=== PATIENT | male | born 1950 | race Caucasian/White ===

== ENCOUNTER → 2017-12-14 | Outpatient (CLI) | payer MEDICARE, MEDICAID ==
[~2017-12-14] MED LIST: FUROSEMIDE 20 MG/2 ML VIAL (J1940) As Ordered
== END ==
LOC: M RAD 10:43
DX: N28.1 Cyst of kidney, acquired (principal); D41.02 Neoplasm of uncertain behavior of left kidney
CPT/HCPCS: J1940

== ENCOUNTER → 2019-01-02 | Outpatient (CLI) | payer MEDICARE, MEDICAID ==
[~2019-01-02] MED LIST changes: +AMLO10TA2 PO; +CYCL10TA3 PO; -FUROSEMIDE 20 MG/2 ML VIAL (J1940) As Ordered; +MELO15TA3 PO; +OXYC1TAB23 PO
--- NOTE | 2019-01-02 10:22 | REP ---
Low-dose lung screening CT of the chest: The study is performed without IV contrast. The images are presented at lung windowing only. There are no comparisons. There is a 20 mm ground-glass density anteromedially in the left upper lobe. This is a category 3 lung lesion. Probability of malignancy is 1 - 2%. There are no other lung nodules or masses. There are no infiltrates or pleural effusions. There are occasional bulla. Impression: Category 3 left upper lobe ground-glass density. The probability of malignancy is 1 - 2%. 6-month follow-up low-dose lung screening CT is recommended. Electronically Signed by Ap Almazan MD 01/02/2019 10:13 A
== END ==
LOC: M RAD 09:21
PROVIDERS: ATTEND Family Medicine
DX: R91.8 Other nonspecific abnormal finding of lung field (principal); F17.210 Nicotine dependence, cigarettes, uncomplicated

== ENCOUNTER → 2021-01-05 | Outpatient (CLI) | payer MEDICARE ==
--- NOTE | 2021-01-05 10:51 | REP ---
INDICATION: SOLITARY PULMONARY NODULE. COMPARISON: 06/26/2020, 01/02/2019. TECHNIQUE: Noncontrast scanning through the chest with coronal and sagittal reconstructions. FINDINGS: The lung sarkar are mildly hyperinflated. There is underlying COPD and emphysematous changes with bullous changes in both apices and upper lung zones as before. On image 75 just posterior to the major fissure anteriorly in the right lower lobe is a 6.3 mm noncalcified nodule is about 4 mm on the previous study. There is a 5.9 mm nodule in the lateral basal segment right middle lobe on image 71 which was 6.4 mm on the previous study, not much changed and certainly not increased in size curvilinear fibrotic changes seen scattered in the lung sarkar. No other definite nodules, masses, pleural plaques or calcified plaques noted no effusion or pneumothorax. Hazy ground-glass density anteromedially in the left upper lobe with some bullous changes adjacent to it is stable in size and appearance for the past 2 years. There are some cylindrical bronchiectatic changes noted. Heart is not grossly enlarged. No pericardial thickening or effusion. There are multiple sub cm right paratracheal, precarinal, AP window, prevascular space, subcarinal and hilar nodes, all unchanged and all less than a cm in size, not pathologic by CT criteria. There is no axillary or supraclavicular mass. Tracheal airway intact. The bones show some minor degenerative changes in the spine without destructive lesion. Sternum, manubrium, medial clavicles, visualized portions of scapulae and ribs are unremarkable for acute finding there are some old posttraumatic changes in the right lateral ribs representing healed fractures. Advanced osteoarthritic changes of the right glenohumeral joint. The upper abdomen shows splenomegaly measuring 16.6 x 7.8 x 8.9 cm giving index of 1152 (normal less than 480) visualized portion of liver shows hypodense areas unchanged and consistent with cysts. Adrenal glands are normal. Gallbladder surgically absent. The visualized portion of pancreas is intact. No change in the upper poles of kidneys from previous study with upper pole cysts bilaterally, left greater than right. IMPRESSION: 1. There is right lower lobe nodule 6.3 mm which was about 4 mm on the previous study. Another stable approximately 6 mm nodule in the lateral basal segment the right middle lobe. Hazy ground-glass density anteromedially in the left upper lobe adjacent bullous changes is stable. No other new or significant findings in the lung sarkar. Fibrosis, COPD and cylindrical bronchiectasis present along with the bullous emphysematous change. 2. No pathologic sized mediastinal or hilar adenopathy. 3. Splenomegaly with a splenic index of 1152 (normal less than 480). Liver with stable multiple low-density within consistent with cysts. Multiple stable upper pole cysts in the limited visualization of kidneys. <Electronically signed by Avtar Hernandez > 01/05/21 [id number]
== END ==
LOC: M RAD 09:21
PROVIDERS: ATTEND Internal Medicine Pulmonary Disease
DX: R91.1 Solitary pulmonary nodule (principal); N28.1 Cyst of kidney, acquired

== ENCOUNTER → 2021-01-30 | Outpatient (CLI) | payer MEDICARE | LOC: M LAB 09:06 | PROVIDERS: ATTEND Internal Medicine Pulmonary Disease | DX: R91.1 Solitary pulmonary nodule (principal) ==

== ENCOUNTER → 2021-02-02 | Outpatient (CLI) | payer MEDICARE ==
--- NOTE | 2021-02-03 19:42 | REP ---
INDICATION: DIAGNOSING LUNG NODULE. COMPARISON: CT chest without IV contrast, 01/05/2021. CT abdomen and pelvis with and without IV contrast, 08/07/2019. TECHNIQUE: Following the intravenous injection of 9.2 mCi of FDG and a standard uptake period, a noncontrast CT scan, followed by a PET scan were acquired along the length of the body from the base of the skull to the mid thighs. The noncontrast helical CT imaging was performed, without breath hold, for attenuation correction of PET images and anatomic correlation, but not for primary interpretation, as it is not a of standard diagnostic quality. Images were reviewed in the axial, coronal and sagittal planes. FINDINGS: Head and neck: There is a normal distribution of FDG activity in the visualized brain parenchyma. There is calcific vascular disease of both carotid bifurcations. There is a mucous retention cyst or polyp in the right maxillary sinus. There is normal uptake within the soft tissues of the neck and glandular structures. There is no lymphadenopathy identified. Chest: There is upper lobe predominant emphysema. The soft tissue density nodule seen in the lateral basal segment of the lower lobe of the right lung on the recent CT chest exam measures approximately 6 mm in diameter on today's exam. The nodule demonstrates FDG activity, max SUV 2.4. However, the nodule does not meet size criteria for characterization by FDG activity. There are multiple reactive mediastinal lymph nodes not demonstrating significant FDG activity. The heart is enlarged. There is no pericardial effusion. There is bilateral gynecomastia. Abdomen and pelvis: There are multiple low-density foci in the liver, the largest is in the left hepatic lobe measuring approximately 5.1 cm in diameter. There is fatty liver infiltration. The spleen is moderately enlarged measuring 16.8 cm in axial dimension. There is a focal calcification of the splenic capsule, laterally, likely posttraumatic. There is a multiloculated cortical cyst in the upper pole the left kidney measuring approximately 7.9 cm in diameter. The cyst demonstrates a few mural calcifications. There is no associated FDG activity. The gallbladder is surgically absent. There is calcific vascular disease of the abdominal aorta. There are few scattered colonic diverticuli without evidence of acute inflammation. Musculoskeletal: There are no suspicious hypermetabolic, osteolytic or osteo sclerotic lesions. IMPRESSION: 1. Soft tissue density nodule in the lower lobe of the right lung demonstrates FDG activity, most consistent with inflammation/infection, however, the nodule is too small to be accurately characterized by FDG activity. 2. Emphysema. 3. Reactive mediastinal lymph nodes do not demonstrate FDG activity. 4. Benign hepatic cysts. 5. Complex cyst in the upper pole of the left kidney does not demonstrate FDG activity consistent with benignity. 6. Other findings as noted. RECOMMENDATION: Six-month follow-up low-dose chest CT. <Electronically signed by Bret Skinner > 02/03/21 1939
== END ==
LOC: M PLARAD 12:00
PROVIDERS: ATTEND Internal Medicine Pulmonary Disease
DX: R91.1 Solitary pulmonary nodule (principal); K76.0 Fatty (change of) liver, not elsewhere classified; K76.89 Other specified diseases of liver; J43.9 Emphysema, unspecified
CPT/HCPCS: 78815; A9552

== ENCOUNTER → 2021-06-23 | Outpatient (CLI) | payer MEDICARE ==
[2021-06-23 13:06] LABS: HEMATOCRIT 40.8 % (42.0-52.0); HEMOGLOBIN 14.1 g/dl (13.5-17.5); MEAN CORPUSCULAR HEMOGLOBIN 31.5 pg (27.0-33.0); MEAN CORPUSCULAR HGB CONC 34.6 g/dl (32.0-36.5); MEAN CORPUSCULAR VOLUME 91.1 fl (80.0-96.0); PLATELET COUNT, AUTOMATED 149 10^3/uL (150-450); RED BLOOD COUNT 4.48 10^6/uL (4.30-6.10); WHITE BLOOD COUNT 9.2 10^3/uL (4.0-10.0)
[2021-06-23 13:18] LABS: INR 1.03; PROTHROMBIN TIME 13.9 SECONDS (12.7-14.5)
[2021-06-23 13:44] LABS: ALBUMIN 3.8 GM/DL (3.2-5.2); ALT/SGPT 53 U/L (12-78); BILIRUBIN,TOTAL 1.9 MG/DL (0.2-1.0); BLOOD UREA NITROGEN 13 MG/DL (7-18); CALCIUM LEVEL 9.1 MG/DL (8.8-10.2); CARBON DIOXIDE LEVEL 29 MEQ/L (21-32); CHLORIDE LEVEL 105 MEQ/L (98-107); CREATININE FOR GFR 0.96 MG/DL (0.70-1.30); GLOMERULAR FILTRATION RATE > 60.0 (>49); GLUCOSE, FASTING 105 MG/DL (70-100); POTASSIUM SERUM 4.1 MEQ/L (3.5-5.1); SODIUM LEVEL 138 MEQ/L (136-145); TOTAL PROTEIN 6.9 GM/DL (6.4-8.2)
[2021-06-23 13:46] LABS: ERYTHROCYTE SEDIMENTATION RATE 13 mm/hr (0-20)
== END ==
LOC: M RAD 11:38
PROVIDERS: ATTEND Orthopaedic Surgery
DX: M17.11 Unilateral primary osteoarthritis, right knee (principal); Z79.899 Other long term (current) drug therapy

== ENCOUNTER → 2021-08-14 | Outpatient (CLI) | payer MEDICARE | LOC: M RAD 12:49 | PROVIDERS: ATTEND Internal Medicine Pulmonary Disease | DX: R91.1 Solitary pulmonary nodule (principal) ==

== ENCOUNTER → 2021-11-20 | Outpatient (CLI) | payer MEDICARE | LOC: M RAD 08:51 | PROVIDERS: ATTEND Internal Medicine Pulmonary Disease | DX: R91.1 Solitary pulmonary nodule (principal); Q61.02 Congenital multiple renal cysts; R16.1 Splenomegaly, not elsewhere classified ==

== ENCOUNTER → 2022-11-08 | Outpatient (CLI) | payer MEDICARE, MEDICAID | LOC: M RAD 10:21 | PROVIDERS: ATTEND Internal Medicine Pulmonary Disease | DX: R91.8 Other nonspecific abnormal finding of lung field (principal); J43.2 Centrilobular emphysema; K76.89 Other specified diseases of liver; R16.1 Splenomegaly, not elsewhere classified ==

== ENCOUNTER → 2023-02-14 | Outpatient (CLI) | payer MEDICARE, MEDICAID | LOC: M PLARAD 13:30 | PROVIDERS: ATTEND Internal Medicine Pulmonary Disease | DX: R91.8 Other nonspecific abnormal finding of lung field (principal) | CPT/HCPCS: 78815; A9552 ==

== ENCOUNTER → 2023-05-13 | Outpatient (REF) ==
[2023-05-13 12:02] LABS: COLLAGEN EPINEPHRINE 95 SECONDS (74-162)
== END ==
LOC: M CAHLAB 11:41
PROVIDERS: ATTEND Physician Assistant
DX: D69.1 Qualitative platelet defects (principal)

== ENCOUNTER → 2023-07-19 | Outpatient (CLI) | payer MEDICARE, MEDICAID | LOC: M RAD 14:44 | PROVIDERS: ATTEND Internal Medicine Pulmonary Disease | DX: R91.8 Other nonspecific abnormal finding of lung field (principal); N62 Hypertrophy of breast ==

== ENCOUNTER 2023-08-03 07:21 | Day surgery (SDC) | payer MEDICARE, MEDICAID ==
[~2023-08-03] VITALS: Ht 180.3 cm; Wt 105.8 kg
[~2023-08-03 07:21] MED LIST changes: +ANOR1AER; +BISO1TAB18 PO; +FEBU80TA PO; +PANT40TA29 PO; +PRED10TA2 PO; +TRAM50TA2 PO; +VENTAER INH
[2023-08-03] MEDS ORDERED: SUGAMMADEX SODIUM 500 MG/5 ML VIAL (BRIDION) As Ordered ONE (08:01)
[2023-08-03] MEDS ORDERED: propofoL 200 MG/20 ML VIAL As Ordered ONE (08:01)
[2023-08-03] MEDS ORDERED: ROCURONIUM BROMIDE 50MG/5ML VIAL As Ordered ONE (08:01)
[2023-08-03] MEDS ORDERED: LIDOCAINE 2% 100MG/5ML SDV (FOR ANES.) As Ordered ONE (08:01)
[2023-08-03] MEDS ORDERED: ONDANSETRON 4MG 2ML VIAL As Ordered ONE (08:01)
[2023-08-03] MEDS ORDERED: MIDAZOLAM INJ 2MG/2ML VIAL As Ordered ONE (08:05)
[2023-08-03] MEDS ORDERED: fentaNYL 100 MCG/2 ML INJECTION As Ordered ONE (08:05)
[2023-08-03] MEDS: LR 1,000 ML IV SCH (09:12)
[2023-08-03] MEDS ORDERED: ACETAMINOPHEN 1000MG 100ML IV BAG As Ordered ONE (09:45)
[2023-08-03] MEDS: EPINEPHrine 1MG/10ML SYRINGE 1.5IN As Ordered ONE (10:00)
[2023-08-03] MEDS: CETACAINE SPRAY 5GM As Ordered ONE (10:00)
[2023-08-03] MEDS ORDERED: fentaNYL 100 MCG/2 ML INJECTION IV PRN (10:35)
[2023-08-03] MEDS ORDERED: ONDANSETRON 4MG 2ML VIAL IV PRN (10:35)
[2023-08-03 12:25] VITALS: BP 174/84; TEMP 97.4; O2SAT 95
== END 2023-08-03 12:48 | disposition home or self-care (01) ==
LOC: M SDC 07:21
PROVIDERS: ATTEND Internal Medicine Pulmonary Disease
DX: R91.8 Other nonspecific abnormal finding of lung field (principal); J84.115 Respiratory bronchiolitis interstitial lung disease; R06.83 Snoring; F17.210 Nicotine dependence, cigarettes, uncomplicated; Z79.899 Other long term (current) drug therapy
CPT/HCPCS: 31627; 31628; 31654; 71045; 76000; 88305; 93005; C1601; J0131; J0171; J1100; J2250; J2405; J3010; S2900

== ENCOUNTER → 2023-11-04 | Outpatient (CLI) | payer MEDICARE, MEDICAID ==
[~2023-11-04] MED LIST changes: -FEBU80TA PO; +FEBU80TA4 PO
== END ==
LOC: M PLAIMG 09:18
PROVIDERS: ATTEND Internal Medicine Pulmonary Disease
DX: R91.8 Other nonspecific abnormal finding of lung field (principal); J43.9 Emphysema, unspecified; Z90.49 Acquired absence of other specified parts of digestive tract; N28.89 Other specified disorders of kidney and ureter

== ENCOUNTER → 2023-12-12 | Outpatient (CLI) | payer MEDICARE, MEDICAID ==
[~2023-12-12] MED LIST changes: +ACETAMINOPHEN TAB 650MG DOSE (2X325MG) PO PRN; +FLUT1BLS8 INH; +HOME MED LIST COMPLETE! XX SCH; +LIDOCAINE 1% MDV 20ML VIAL As Ordered ONE; +MIDAZOLAM INJ 2MG/2ML VIAL As Ordered ONE; +NORCO, ANEXSIA 5/325MG TABLET (HYDROcodone/ACETAMINOPHEN) PO PRN; +fentaNYL 100 MCG/2 ML INJECTION As Ordered ONE
[2023-12-12 07:30] VITALS: TEMP 97.8
[2023-12-12] MEDS: NS 1,000 ML IV SCH (08:51)
[2023-12-12 10:30] VITALS: BP 173/86; O2SAT 94
== END ==
LOC: M IRPRO 07:15
PROVIDERS: ATTEND Internal Medicine Pulmonary Disease
DX: R91.8 Other nonspecific abnormal finding of lung field (principal); C78.02 Secondary malignant neoplasm of left lung
CPT/HCPCS: 32408; 88305; 99152; 99153; J2250; J3010

== ENCOUNTER → 2024-02-07 | Outpatient (CLI) | payer MEDICARE, MEDICAID ==
[~2024-02-07] MED LIST changes: -ACETAMINOPHEN TAB 650MG DOSE (2X325MG) PO PRN; -HOME MED LIST COMPLETE! XX SCH; -LIDOCAINE 1% MDV 20ML VIAL As Ordered ONE; -MIDAZOLAM INJ 2MG/2ML VIAL As Ordered ONE; -NORCO, ANEXSIA 5/325MG TABLET (HYDROcodone/ACETAMINOPHEN) PO PRN; -fentaNYL 100 MCG/2 ML INJECTION As Ordered ONE
== END ==
LOC: M PLARAD 08:30
PROVIDERS: ATTEND Internal Medicine Hematology & Oncology
DX: C64.9 Malignant neoplasm of unspecified kidney, except renal pelvis (principal); R91.8 Other nonspecific abnormal finding of lung field
CPT/HCPCS: 78815; A9552

== ENCOUNTER → 2024-04-03 | Outpatient (CLI) | payer MEDICARE, MEDICAID | LOC: M RAD 07:30 | PROVIDERS: ATTEND Internal Medicine Pulmonary Disease | DX: C78.01 Secondary malignant neoplasm of right lung (principal); C78.02 Secondary malignant neoplasm of left lung ==

== ENCOUNTER → 2024-05-01 | Outpatient (CLI) | payer MEDICARE, MEDICAID | LOC: M RAD 08:03 | PROVIDERS: ATTEND Internal Medicine Hematology & Oncology | DX: C64.9 Malignant neoplasm of unspecified kidney, except renal pelvis (principal); N28.1 Cyst of kidney, acquired; K76.0 Fatty (change of) liver, not elsewhere classified; Z90.49 Acquired absence of other specified parts of digestive tract; K76.89 Other specified diseases of liver ==